=== PATIENT | male | born 1970 | race Caucasian/White ===

== ENCOUNTER 2018-09-07 05:49 | Observation (INO) ==
[2018-09-07] MEDS ORDERED: Aspirin 325 MG TABLET PO ONE (06:49)
[2018-09-07 07:17] LABS: Basophils # 0.1 K/mcL (0.0-0.2); Basophils % 0.8 %; Eosinophils # 0.2 K/mcL (0.0-0.6); Eosinophils % 1.8 %; Hematocrit 46.8 % (37.5-50.1); Hemoglobin 15.4 g/dL (12.9-16.9); Immature Granulocytes % 0.3 % (0-4); Lymphocytes # 1.6 K/mcL (0.6-4.6); Mean Corpuscular HGB Conc 32.9 g/dL (31.6-35.5); Mean Corpuscular Hemoglobin 29.9 pg (28.0-33.3); Mean Corpuscular Volume 90.9 fL (83.0-100.0); Mean Platelet Volume 9.6 fL (9.4-12.4); Monocytes # 1.1 K/mcL (0.0-1.3); Monocytes % 10.8 %; Neutrophils # 6.9 K/mcL (1.6-8.9); Platelet Count 238 K/mcL (140-400); Red Blood Count 5.15 M/mcL (4.19-5.50); Segmented Neutrophils % 70.3 %; White Blood Count 9.9 K/mcL (4.3-11.1)
[2018-09-07 07:25] LABS: Prothrombin Time 11.2 Seconds (9.4-12.1)
[2018-09-07 07:28] LABS: Activated Partial Thrombo Time 33.3 Seconds (26.0-36.0)
[2018-09-07 07:46] LABS: BUN/Creatinine Ratio 15 (6-26); Blood Urea Nitrogen 17 mg/dL (6-20); Calcium 9.2 mg/dL (8.6-10.3); Carbon Dioxide 25 mEq/L (23-29); Chloride 105 mEq/L (98-107); Glucose 124 mg/dL (70-105); Osmolality,Calculated 291 (280-300); Potassium 4.5 mEq/L (3.5-5.1); Sodium 139 mEq/L (136-145); Troponin I 0.08 ng/mL (< 0.04); eGFR For African Americans > 60 (> 60); eGFR For Non-African Americans > 60 (> 60)
[2018-09-07] MEDS ORDERED: Heparin 25,000 UNIT/250 ML D5W 25,000 UNIT/250 ML IV.SOLN IVC SCH (08:00)
[2018-09-07 08:03] LABS: Heparin anti-factor XA UFH 0.02 IU/mL (0.30-0.70)
[2018-09-07] MEDS ORDERED: *HR* Heparin 5,000 UNIT/ML VIAL IVP ONE (08:08)
[2018-09-07] MEDS ORDERED: *HR* Heparin 5,000 UNIT/ML VIAL IVP PRN ×2 (08:08)
[2018-09-07] MEDS ORDERED: *HR* Labetalol 20 MG/4 ML SYRINGE IVP STA (08:36)
[2018-09-07] MEDS ORDERED: *HR* Labetalol 20 MG/4 ML SYRINGE IVP PRN (08:36)
[2018-09-07] MEDS ORDERED: Nitroglycerin 0.4 MG TAB.SUBL SL PRN (08:36)
[2018-09-07] MEDS ORDERED: amLODIPine 5 MG TABLET PO SCH ×2 (09:00→21:30)
[2018-09-07] MEDS ORDERED: Ondansetron 4 MG/2 ML VIAL IVP PRN (09:05)
[2018-09-07] MEDS ORDERED: Naloxone 0.4 MG/ML INJ IVP PRN (09:05)
[2018-09-07] MEDS ORDERED: Nitroglycerin 25 MG/250 ML INFUS..BTL IVC SCH (09:15)
[2018-09-07] MEDS: hydroCHLOROthiazide 25 MG TABLET PO SCH (11:53)
[2018-09-07] MEDS: carvediloL 6.25 MG TABLET PO SCH (13:21)
[2018-09-07] MEDS ORDERED: carvediloL 6.25 MG TABLET PO ONE (21:00)
[2018-09-07] MEDS ORDERED: carvediloL 6.25 MG TABLET PO SCH (21:23)
[2018-09-08] MEDS ORDERED: *HR* Heparin 5,000 UNIT/ML VIAL SQ SCH (06:00)
[2018-09-08 06:52] VITALS: BP 169/115
[2018-09-08] MEDS: carvediloL 6.25 MG TABLET PO SCH (07:51)
[2018-09-08] MEDS: hydroCHLOROthiazide 25 MG TABLET PO SCH (07:51)
[2018-09-08] MEDS ORDERED: amLODIPine 5 MG TABLET PO SCH (09:00)
[2018-09-08] MEDS ORDERED: NON-FORMULARY MEDICATION 1 EACH EACH (Hydrochlorothiazide [Hydrochlorothiazide] 12.5 MG) PO SCH (09:00)
== END 2018-09-08 14:10 | disposition home or self-care (01) ==
LOC: EMEROOARM 05:49 → 2NENU 05:49 → SUATTDRO 09:12 → 2NENU 11:16
PROVIDERS: ADMIT Student in an Organized Health Care Education/Training Program; ATTEND Internal Medicine